=== PATIENT | male | born 1955 | race Caucasian/White ===

== ENCOUNTER 2020-09-22 14:58 | Emergency (ER) | payer OTHER ==
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
== END 2020-09-22 17:13 | disposition home or self-care (01) ==
LOC: JP.ED 14:58
DX: S10.93XA Contusion of unspecified part of neck, initial encounter (principal); H53.2 Diplopia; H55.00 Unspecified nystagmus; E78.00 Pure hypercholesterolemia, unspecified; F41.9 Anxiety disorder, unspecified; Z88.8 Allergy status to other drugs, medicaments and biological substances; Z79.82 Long term (current) use of aspirin; Z79.899 Other long term (current) drug therapy; Z79.84 Long term (current) use of oral hypoglycemic drugs; W22.8XXA Striking against or struck by other objects, initial encounter
CPT/HCPCS: 70450; 72125; 99285-25

== ENCOUNTER 2020-09-28 10:12 | Emergency (ER) | payer OTHER ==
[2020-09-28] MEDS ORDERED: Baclofen 10 MG Tab PO ONE (10:52)
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
== END 2020-09-28 11:08 | disposition home or self-care (01) ==
LOC: JP.ED 10:12
DX: M62.838 Other muscle spasm (principal); R42 Dizziness and giddiness; E78.00 Pure hypercholesterolemia, unspecified; Z88.8 Allergy status to other drugs, medicaments and biological substances; Z79.82 Long term (current) use of aspirin; Z79.899 Other long term (current) drug therapy
CPT/HCPCS: 99283; A9270

== ENCOUNTER 2020-10-02 16:19 | Emergency (ER) | payer OTHER ==
[2020-10-02] MEDS ORDERED: Methocarbamol 500 MG Tab PO ONE (18:33)
[2020-10-02] MEDS ORDERED: Ketorolac 30 MG/ML SDV IM ONE (18:33)
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
== END 2020-10-02 19:58 | disposition home or self-care (01) ==
LOC: JP.ED 16:19
DX: M43.6 Torticollis (principal); M54.12 Radiculopathy, cervical region; Z88.8 Allergy status to other drugs, medicaments and biological substances; Z79.899 Other long term (current) drug therapy
CPT/HCPCS: 96372; 99284; A9270; J1885; 99283

== ENCOUNTER 2020-10-07 11:39 | Emergency (ER) | payer OTHER ==
[2020-10-07] MEDS ORDERED: Ketorolac 10 MG Tab PO ONE (12:17)
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
== END 2020-10-07 13:06 | disposition home or self-care (01) ==
LOC: JP.ED 11:39
DX: M54.2 Cervicalgia (principal); Z88.8 Allergy status to other drugs, medicaments and biological substances
CPT/HCPCS: 99283; A9270-GY

== ENCOUNTER 2020-10-11 10:52 | Emergency (ER) | payer OTHER ==
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
== END 2020-10-11 14:28 | disposition home or self-care (01) ==
LOC: JP.ED 10:52
DX: R20.0 Anesthesia of skin (principal); R20.2 Paresthesia of skin; E78.00 Pure hypercholesterolemia, unspecified; Z79.899 Other long term (current) drug therapy; Z79.82 Long term (current) use of aspirin; Z88.8 Allergy status to other drugs, medicaments and biological substances
CPT/HCPCS: 99283

== ENCOUNTER 2023-09-20 19:53 | Emergency (ER) | payer OTHER ==
[2023-09-20 20:15] LABS: APPEARANCE,URINE SLIGHTLY CLOUDY (CLEAR); BILIRUBIN,URINE NEGATIVE (NEGATIVE); COLOR,URINE YELLOW (YELLOW); GLUCOSE,URINE NEGATIVE (NEGATIVE); KETONES,URINE NEGATIVE (NEGATIVE); LEUKOCYTE ESTERASE,URINE NEGATIVE (NEGATIVE); NITRITE,URINE NEGATIVE (NEGATIVE); OCCULT BLOOD,URINE NEGATIVE (NEGATIVE); PROTEIN,URINE 30 mg/dL (NEGATIVE); UROBILINOGEN,URINE 0.2 EU/dL (0.2-1.0)
[2023-09-20 20:24] LABS: AMORPHOUS SEDIMENT,URINE NOT SEEN; BACTERIA,URINE NOT SEEN; EPITHELIAL CELLS,URINE NOT SEEN; MUCUS,URINE NOT SEEN; RBC,URINE NOT SEEN (0-5); WBC,URINE 0-5 (0-5)
== END 2023-09-20 21:40 | disposition home or self-care (01) ==
LOC: JP.ED 19:53
DX: R33.9 Retention of urine, unspecified (principal); E78.00 Pure hypercholesterolemia, unspecified; E11.9 Type 2 diabetes mellitus without complications; Z87.891 Personal history of nicotine dependence; Z88.8 Allergy status to other drugs, medicaments and biological substances; Z79.82 Long term (current) use of aspirin; Z79.899 Other long term (current) drug therapy; Z79.84 Long term (current) use of oral hypoglycemic drugs; Z98.890 Other specified postprocedural states
CPT/HCPCS: 51702; 81001; 99283